=== PATIENT | female | born 1945 | race Caucasian/White ===

== ENCOUNTER 2023-04-09 11:30 | Emergency (ER) | payer MEDICARE, OTHER ==
[~2023-04-09] VITALS: Ht 160 cm; Wt 80.0 kg
[2023-04-09 11:41] VITALS: O2SAT 99
[2023-04-09] MEDS ORDERED: APIX5TAB4 PO (11:45)
[2023-04-09 13:24] LABS: BASOPHILS % 0.7 % (0.0-2.0); EOSINOPHILS % 2.4 % (0.0-5.0); HEMATOCRIT. 33.6 % (36.0-48.0); HEMOGLOBIN. 11.1 g/dL (12.0-16.0); LYMPHOCYTES % 15.4 % (20.0-50.0); MEAN CORPUSCULAR HEMOGLOBIN 28.9 pg (28.0-32.0); MEAN CORPUSCULAR VOLUME 87.4 fL (81.0-99.0); MEAN PLATELET VOLUME 7.8 fl (7.4-10.4); MONOCYTES % 9.3 % (2.0-8.0); NEUTROPHILS % 72.2 % (40.0-76.0); PLATELET 229 x1000/uL (130-400); RED BLOOD CELL COUNT 3.84 mill/uL (4.2-5.4); RED CELL DISTRIBUTION WIDTH 16.8 % (11.6-14.6); WHITE BLOOD COUNT 7.8 x1000/uL (4.5-11.0)
[2023-04-09 13:49] LABS: ALANINE AMINOTRANSFERASE 7 IU/L (10-49); ALBUMIN 3.6 g/dL (3.2-4.8); ASPARTATE AMINOTRANSFERASE 13 IU/L (<34); BILIRUBIN TOTAL 0.5 mg/dL (0.1-1.0); CARBON DIOXIDE 24 mEq/L (21-32); CHLORIDE 108 mEq/L (98-107); CREATININE 1.7 mg/dL (0.6-1.0); GLUCOSE 139 mg/dL (70-105); POTASSIUM 3.7 mEq/L (3.5-5.1); PROTEIN TOTAL 7.4 g/dL (6.0-8.3); SODIUM 141 mEq/L (136-145); UREA NITROGEN BLOOD 50 mg/dL (9-23)
[2023-04-09 15:05] VITALS: BP 137/82; PULSE 92; RESP 18; TEMP 98.2
== END 2023-04-09 15:07 | disposition home or self-care (01) ==
LOC: ER 11:30
DX: S81.802A Unspecified open wound, left lower leg, initial encounter (principal); S09.90XA Unspecified injury of head, initial encounter; I10 Essential (primary) hypertension; E78.00 Pure hypercholesterolemia, unspecified; W18.30XA Fall on same level, unspecified, initial encounter; Y93.89 Activity, other specified; Y92.89 Other specified places as the place of occurrence of the external cause; Y99.8 Other external cause status
CPT/HCPCS: 36415; 73590; 80053; 85025; 99284

== ENCOUNTER 2024-07-10 15:39 | Emergency (ER) | payer OTHER, MEDICAID ==
[~2024-07-10] VITALS: Ht 165.1 cm; Wt 98.0 kg
[~2024-07-10 15:39] MED LIST: APIX5TAB4 PO; ASCO500C18 PO; ATOR40TA70 PO; FLUO40CA8 MT; FURO-151 PO; GABA-1180 PO; METO25TA3 PO; SITA25TA3 PO
[2024-07-10 15:44] VITALS: O2SAT 98
[2024-07-10 16:45] LABS: BASOPHILS % 0.8 % (0.0-2.0); EOSINOPHILS % 2.5 % (0.0-5.0); HEMATOCRIT. 26.2 % (36.0-48.0); HEMOGLOBIN. 8.5 g/dL (12.0-16.0); MEAN CORPUSCULAR HEMOGLOBIN 28.2 pg (28.0-32.0); MEAN CORPUSCULAR HGB CONC 32.4 g/dL (31.0-37.0); MEAN CORPUSCULAR VOLUME 87.2 fL (81.0-99.0); MEAN PLATELET VOLUME 7.6 fl (7.4-10.4); MONOCYTES % 5.3 % (2.0-8.0); NEUTROPHILS % 81.4 % (40.0-76.0); PLATELET 192 x1000/uL (130-400); RED BLOOD CELL COUNT 3.01 mill/uL (4.2-5.4); RED CELL DISTRIBUTION WIDTH 17.5 % (11.6-14.6); WHITE BLOOD COUNT 7.1 x1000/uL (4.5-11.0)
[2024-07-10 16:55] LABS: CHLORIDE 102 mEq/L (98-107); POTASSIUM 4.1 mEq/L (3.5-5.1); SODIUM 136 mEq/L (136-145)
[2024-07-10 16:56] LABS: CALCIUM 8.8 mg/dL (8.7-10.4); CARBON DIOXIDE 27 mEq/L (21-32)
[2024-07-10 17:01] LABS: CREATININE 2.5 mg/dL (0.6-1.0); GLUCOSE 251 mg/dL (70-105); UREA NITROGEN BLOOD 49 mg/dL (9-23)
[2024-07-10 17:10] LABS: TROPONIN I HIGH SENSITIVITY 79 ng/L (3.0-34)
[2024-07-10] MEDS ORDERED: AZITHROMYCIN 500MG/250ML 250 ML IV SCH (17:30)
[2024-07-10] MEDS: ASPIRIN 81MG TABLET PO NR (20:55)
[2024-07-10] MEDS: CEFTRIAXONE 1GM/50ML 50 ML IV NR (20:56)
[2024-07-10] MEDS: AZITHROMYCIN 500MG/250ML 250 ML IV SCH (22:06)
[2024-07-10 22:33] VITALS: BP 106/76; PULSE 100; RESP 21; TEMP 36.8; O2SAT 99
== END 2024-07-10 22:50 | disposition short-term general hospital (02) ==
LOC: ER 15:39 → CANBEDREQ 07-11 00:08
DX: J18.9 Pneumonia, unspecified organism (principal); I21.4 Non-ST elevation (NSTEMI) myocardial infarction; I71.9 Aortic aneurysm of unspecified site, without rupture; I12.9 Hypertensive chronic kidney disease with stage 1 through stage 4 chronic kidney disease, or unspecified chronic kidney disease; E11.22 Type 2 diabetes mellitus with diabetic chronic kidney disease; N18.9 Chronic kidney disease, unspecified; E78.00 Pure hypercholesterolemia, unspecified; Z79.84 Long term (current) use of oral hypoglycemic drugs; Z79.01 Long term (current) use of anticoagulants; Z79.899 Other long term (current) drug therapy; Z86.711 Personal history of pulmonary embolism
CPT/HCPCS: 99291; 96365; 96367; 80048; 83880; 85025; 87040; 84484; 36415; 71045; 93005; J0456; J0696